=== PATIENT | female | born 1940 | race Caucasian/White ===

== ENCOUNTER 2018-12-07 23:38 | Inpatient (IN) | payer MEDICARE, MEDICAID ==
[~2018-12-07] VITALS: Ht 160 cm; Wt 66.2 kg
--- NOTE | ~2018-12-07 | CON ---
[address] [address] CONSULTATION Name: CHANTELLE MITCHELL DECEMBER Room: [address] ADM IN M.R.#: [id number] Admission: 12/08/18 Attend Phys: Macey Hampton Discharge: Date of : 36 Report #: [id number] THIS REPORT FOR: //name// CC: Martha Oviedo Guillermo Henley DATE OF SERVICE: 12/08/2018 HISTORY OF PRESENT ILLNESS: This is an 78-year-old female patient who was evaluated by me because she had an episode where she does not remember anything for 3 hours or so. Her memory was reasonable for rest of the time. There was no focal symptom associated with this episode. However, she had another episode the day before where she had some trouble with the right side of the body. She is back to the baseline according to the family. Usually, she lives with nephew. He is the one who noticed this. REVIEW OF SYSTEMS: A 14-point review of system was carried out and the patient indicates that she had either TIA or strokes in the past. She is not very clear about the history. I do not have any prior records in this patient. She is a diabetic. She checked her blood sugar after the episode was over and blood sugar was 140 that time. It is not clear what the blood pressure was when this happened. She feels back to her baseline. The family confirms that she does not complain of any new eye, ENT, cardiac, respiratory, GI, , musculoskeletal, constitutional, dermatological, hematological, psychiatric, throat, allergic symptom associated with present symptomatology. PAST MEDICAL HISTORY: Positive for poorly defined TIAs or stroke. FAMILY HISTORY: Negative for any early age stroke. SOCIAL HISTORY: She lives with nephew and they provided some history. She denies any stress. PHYSICAL EXAMINATION: Indicate she is alert, responsive. Family thinks her speech, concentration, fund of knowledge and memory is at her baseline. Cranial nerve examination 2-12 looks unremarkable. She has symmetrical strength, sensation, reflexes and tone in all 4 extremities. There is no meningeal sign. There is no respiratory difficulty. The pulses are palpable. There is no edema, cyanosis or jaundice in this patient. Cardiac examination is unremarkable. No respiratory difficulty or rhonchi was noticed. The last blood pressure is 188/60. LABORATORY DATA: White count was 12.3. Her sodium is low at 133, blood sugar has been high. Calcium is low. She did have a CT scan of the head, [place] [address] CONSULTATION Name: CHANTELLE MITCHELL DECEMBER Room: [address] IN [facility].#: [id number] Admission: 12/08/18 Attend Phys: Macey Hampton Discharge: Date of : 36 Report #: [id number] IMPRESSION: This episode is suggestive of transient global amnesia. However, the patient did have some focal sign which is worrisome. That raised the possibility of hypertensive encephalopathy or any transient ischemic attack or any non-convulsive seizure. We need to work her up and we will see if that workup can be arranged. Her blood pressure does need to be better controlled by readjusting the medication and I am not sure her white count is somewhat high. That also need to be addressed and I will defer that to you. RECOMMENDATIONS: 1. MRI. 2. MRA. 3. EEG. 4. We will see if this workup demonstrates anything and then decide about any further neurological workup in this patient. Thank you very much for this referral. By: [id number] Mccann MD /nt
--- NOTE | ~2018-12-07 | EEG ---
[address] [address] EEG STUDY REPORT Name: CHANTELLE MITCHELL Room: [address] IN M.R.#: [id number] Admission: 12/08/18 Attend Phys: Macey Hampton Discharge: Date of : 36 Report #: [id number] THIS REPORT FOR: //name// CC: Martha Ivelisse Guillermo Henley DATE OF SERVICE: 12/08/2018 REASON FOR VISIT: This patient is being evaluated for the possibility of TIA. INTERPRETATION: EEG was done by placing the electrodes by standard 10-20 system of electrode placement. Both referential and sequential montages were used for recording. Background activity in this patient's EEG is about 9 Hz and 30 microvolt. This patient went to sleep and that is associated with bilateral slowing and vertex sharp waves. Photic stimulation was unremarkable. Throughout the record, no active epileptiform activity was noticed. IMPRESSION: This patient's electroencephalogram demonstrates some intermixed theta range slowing. That is a nonspecific abnormality, which can occur with encephalopathy, effect of psychotropic medication, dementia, etc. Clinical correlation is recommended. By: [id number] Mccann MD /ida
[2018-12-07 03:00] VITALS: BP 163/60
[2018-12-07 23:39] VITALS: BP 208/74
[2018-12-08] VITALS (7 sets, daily range): BP systolic 155–200; BP diastolic 51–76
[2018-12-08 00:06] LABS: HEMOGLOBIN 11.4 gm/dL (12.0-15.0); MCH 30.2 pg (26.0-34.0); NUCLEATED RBCS 0 /100WBC
[2018-12-08 00:10] LABS: MCHC 33.6 g/dL (28.0-37.0); MCV 89.9 fL (80.0-100.0); MPV 9.1 fl. (7.2-11.1); PLATELET COUNT* 307 thou/uL (150-400); RBC 3.78 mil/uL (4.20-5.00); RDW-CV 13.4 % (10.5-14.5); WBC 12.3 thou/uL (4.0-11.0)
[2018-12-08 00:30] LABS: ANION GAP 8 mmol/L (7-16); BUN 33 mg/dL (7-18); CALCIUM 9.1 mg/dL (8.5-10.1); CHLORIDE 101 mmol/L (98-107); CO2 26 mmol/L (21-32); CREATININE 1.3 mg/dL (0.6-1.3); GLUCOSE 257 mg/dL (70-99); POTASSIUM 5.2 mmol/L (3.5-5.1); SODIUM 135 mmol/L (136-145); TROPONIN-I LEVEL <0.06 ng/mL (<0.06)
[2018-12-08 00:32] LABS: ALBUMIN 3.2 g/dL (3.4-5.0); ALKALINE PHOSPHATASE 72 U/L (46-116); NT-PRO BRAIN NAT PEPTIDE 1012 pg/mL (<300); SGOT 13 U/L (15-37); SGPT 21 U/L (30-65); TOTAL BILIRUBIN 0.5 mg/dL (<0.1-1.0); TOTAL PROTEIN 7.1 g/dL (6.4-8.2)
[2018-12-08 00:59] LABS: ABSOLUTE BASOPHILS 0.1 thou/uL (0.0-0.2); ABSOLUTE LYMPHOCYTES 1.4 thou/uL (0.8-5.3); ABSOLUTE MONOCYTES 1.2 thou/uL (0.0-1.2); ABSOLUTE NEUTROPHILS 9.6 thou/uL (1.6-8.1); PLATELET ESTIMATE ADEQUATE
[2018-12-08 01:00] LABS: ANISOCYTOSIS 1+; TOXIC GRANULATION 1+
[2018-12-08] MEDS ORDERED: LISINOPRIL5 MG PO (04:43)
[2018-12-08] MEDS ORDERED: NOVOLIN N100 UNIT/1 SQ (04:47)
[2018-12-08 05:21] LABS: URINE BILIRUBIN NEGATIVE (Negative); URINE BLOOD TRACE (Negative); URINE CLARITY CLEAR; URINE COLOR YELLOW; URINE GLUCOSE-RANDOM TRACE (Negative); URINE KETONES NEGATIVE (Negative); URINE LEUKOCYTES-REFLEX NEGATIVE (Negative); URINE NITRITE-REFLEX NEGATIVE (Negative); URINE PROTEIN 1+ (Negative); URINE SPECIFIC GRAVITY 1.025 (1.005-1.030); URINE UROBILINOGEN 0.2 E.U./dl (0.2-1.0)
[2018-12-08 06:03] LABS: ALBUMIN 2.8 g/dL (3.4-5.0); ALKALINE PHOSPHATASE 57 U/L (46-116); ANION GAP 9 mmol/L (7-16); BUN 31 mg/dL (7-18); CALCIUM 8.2 mg/dL (8.5-10.1); CHLORIDE 101 mmol/L (98-107); CHOLESTEROL 163 mg/dL (<200); CO2 23 mmol/L (21-32); GLUCOSE 165 mg/dL (70-99); HDL CHOLESTEROL 60 mg/dL (>40); LDL CHOLESTEROL 87 mg/dL (<100); POTASSIUM 4.7 mmol/L (3.5-5.1); SERUM ASSESSMENT CLEAR; SGOT 17 U/L (15-37); SGPT 23 U/L (30-65); SODIUM 133 mmol/L (136-145); TC:HDL 2.7 Ratio (Not establshd); TOTAL BILIRUBIN 0.3 mg/dL (<0.1-1.0); TOTAL PROTEIN 5.6 g/dL (6.4-8.2); TRIGLYCERIDE 80 mg/dL (<150); VLDL 16 mg/dL (<40)
[2018-12-09 02:07] LABS: GLYCOHEMOGLOBIN (HGB A1C) 5.6 % (4.8-5.6)
[2018-12-09 04:00] VITALS: BP 152/55
[2018-12-09 04:59] LABS: HEMATOCRIT 29.1 % (37.0-47.0); HEMOGLOBIN 10.3 gm/dL (12.0-15.0); MCH 31.1 pg (26.0-34.0); MCHC 35.4 g/dL (28.0-37.0); MCV 87.9 fL (80.0-100.0); RBC 3.31 mil/uL (4.20-5.00); RDW-CV 13.1 % (10.5-14.5); WBC 6.9 thou/uL (4.0-11.0)
[2018-12-09 05:22] LABS: CALCIUM 8.6 mg/dL (8.5-10.1); MAGNESIUM 2.2 mg/dL (1.8-2.4); POTASSIUM 4.3 mmol/L (3.5-5.1)
[2018-12-09 08:00] VITALS: BP 171/68
[2018-12-09] MEDS ORDERED: ASPIRIN EC81 M1 PO (09:00)
[2018-12-09] MEDS ORDERED: NORVASC10 MG PO (09:00)
[2018-12-09 10:24] VITALS: BP 171/68
--- NOTE | 2018-12-09 12:04 | EKG ---
[place] [address] ELECTROCARDIOGRAM REPORT Name: CHANTELLE MITCHELL DECEMBER Room: [address] DIS IN M.R.#: [id number] Admission: 12/08/18 Attend Phys: Macey Hampton Discharge: 12/09/18 Date of : 36 Report #: [id number] THIS REPORT FOR: //name// [facility] ED Test Date: 2018-12-07 Test Time: 23:49:35 Pat Name: CHANTELLE MITCHELL Department: Room: [facility] Gender: F [employer]: : 1940 Requested By: Kevyn Michaud Order Number: [id number] MD: Qasim Holguin Measurements Intervals [place] Rate: 72 P: 58 NE: 179 QRS: -14 QRSD: 94 T: 59 QT: 411 QTc: 450 Interpretive Statements Sinus rhythm LVH by voltage Baseline wander in lead(s) II,III,aVR,aVF,V2 No previous ECG available for comparison Electronically Signed On 12-09-2018 12:04:02 CDT by Qasim Holguin [email or web address] <ELECTRONICALLY SIGNED> By: Qasim Holguin MD, FACC 12/09/18 1204 [id number] Qasim Holguin MD, FACC /EPI
== END 2018-12-09 10:50 | disposition home health service (06) | DRG 69 ==
LOC: M.ERS 23:38 → M.TBA-ER 12-08 01:46 → M.2W 12-08 03:36
PROVIDERS: Emergency Medicine Emergency Medical Services; Internal Medicine; ADMIT Internal Medicine
DX: G45.9 Transient cerebral ischemic attack, unspecified (principal); I67.4 Hypertensive encephalopathy; I16.1 Hypertensive emergency; F03.90 Unspecified dementia, unspecified severity, without behavioral disturbance, psychotic disturbance, mood disturbance, and anxiety; E11.9 Type 2 diabetes mellitus without complications; Z91.19 Patient's noncompliance with other medical treatment and regimen; Z79.899 Other long term (current) drug therapy; Z86.73 Personal history of transient ischemic attack (TIA), and cerebral infarction without residual deficits